=== PATIENT | male | born 1985 | race African-American/Black ===

== ENCOUNTER 2017-04-29 16:40 | Emergency (ER) | payer MEDICAID ==
[~2017-04-29] VITALS: Ht 172.7 cm; Wt 73.5 kg
[~2017-04-29 16:40] MED LIST: AMOXICILLI200 MG/5 M PO; AMOXICILLIN500 MG PO; ANUSOL HC1 SUPP RECTAL; AZITHROMYCIN250 MG ORAL; CIPRO250 MG ORAL; HYDROCORTISO1 APPLIC TOPIC; IBUPROFEN800 M1 PO; NKM; NORCO 5-325 TA1 EACH ORAL; PENICILLIN V P500 MG ORAL; PRILOSEC20 MG ORAL; PROTONIX40 MG ORAL; RANITIDINE HCL150 MG ORAL; ZOFRAN ODT4 MG ORAL
[2017-04-29 17:03] VITALS: BP 126/71
[2017-04-29] MEDS ORDERED: AMOXICILLIN500 MG ORAL (17:13)
[2017-04-29 17:26] VITALS: BP 126/71
--- NOTE | 2017-04-29 18:55 | Emergency Room Report ---
History of Present Illness General Chief Complaint: Earache Source: Patient Present Illness HPI The patient is a 31-year-old presenting for bilateral ear pain. The patient states the pain began one week prior to both ears and is now described as a 6/ 10 dull ache. Pain does not radiate. No known provoking or relieving factors. He states that he placed garlic inside of the ears and is unsure if he removed all of it. He denies any injury to the area. He denies any changes in hearing or dizziness Allergies: Coded Allergies: No Known Allergies (Unverified , 09/11/16) Patient History Past Medical History: see triage record Pertinent Family History: none Reviewed Nursing Documentation: PMH: Agreed, PSxH: Agreed Nursing Documentation-PMH Hx Cardiac Problems: No Hx Cancer: No Hx Gastrointestinal Problems: Yes - GERD, Pancreatitis Hx Neurological Problems: No Review of Systems All Other Systems: negative except mentioned in HPI Physical Exam Vital Signs Date Time Temp Pulse Resp B/P Pulse Ox O2 Delivery O2 Flow Rate FiO2 04/29/17 16:53 98.1 84 15 126/71 100 Room Air Sp02 EP Interpretation: reviewed, normal General Appearance: no apparent distress, alert, GCS 15, non-toxic Head: normocephalic, atraumatic Eyes: bilateral eye PERRL, bilateral eye normal inspection ENT: hearing grossly normal, normal pharynx, no angioedema, normal voice, uvula midline, other - bilat TM erythema and bulging. No FB Neck: full range of motion, supple/symm/no masses Respiratory: chest non-tender, lungs clear, normal breath sounds, speaking full sentences Musculoskeletal: back normal, gait/station normal, normal range of motion, non- tender Neurologic: alert, oriented x3, responsive, motor strength/tone normal, sensory intact, speech normal Psychiatric: judgement/insight normal, memory normal, mood/affect normal, no suicidal/homicidal ideation Skin: normal color, no rash, warm/dry, well hydrated Lymphatic: no adenopathy Medical Decision Making PA Attestation Dr. Breen is my supervising physician. Patient management was discussed with my supervising physician Diagnostic Impression: Primary Impression: Otitis media Qualified Codes: H66.93 - Otitis media, unspecified, bilateral ER Course The patient is a 31-year-old presenting for bilateral ear pain Differential diagnosis include but not limited to otitis externa, otitis media, mastoiditis, sinusitis, pharyngitis, FB Physical exam:No apparent distress HEENT exam: There is bilateral tympanic membrane erythema and bulging. External auditory canal unremarkable. No tenderness to palpation over tragus. No nasal discharge. No foreign body. No tonsillar edema or erythema. No exudate Lungs are clear to auscultation bilaterally The patient will be discharged home with a prescription for amoxicillin and will followup with [employer]. ER precautions are given Last Vital Signs Date Time Temp Pulse Resp B/P Pulse Ox O2 Delivery O2 Flow Rate FiO2 04/29/17 17:26 84 15 126/71 100 Room Air 04/29/17 17:03 98.1 Status: improved Disposition: HOME, SELF-CARE Condition: Improved Scripts Amoxicillin* (AMOXIL*) 500 Mg Capsule 500 MG ORAL Q12HR, #14 CAP Prov: LULU DOWNS 04/29/17 Referrals: [facility],REFERRING (PCP) Patient Instructions: Otitis Media, Adult Additional Instructions: I discussed my findings with the patient. All questions and concerns have been answered. Treatment and medication compliance have been addressed. I advised the patient that they need to follow up with PMD in 3-5 days. Return to ED if symptoms worsen, new symptoms arise, or if needed for any reason. Patient verbalized understanding of discharge instructions. LULU DOWNS Apr 29, 2017 18:55
== END 2017-04-29 17:26 | disposition home or self-care (01) ==
LOC: EMR 17:10
DX: H66.93 Otitis media, unspecified, bilateral (principal); K21.9 Gastro-esophageal reflux disease without esophagitis
CPT/HCPCS: 99283

== ENCOUNTER 2018-09-07 22:19 | Emergency (ER) | payer MEDICAID ==
[~2018-09-07] VITALS: Ht 175.3 cm; Wt 77.1 kg
[~2018-09-07 22:19] MED LIST changes: +AMOXICILLIN500 MG ORAL
[2018-09-07 22:35] VITALS: BP 134/81
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
[2018-09-07 22:56] LABS: APPEARANCE,URINE CLEAR; BILIRUBIN, URINE NEGATIVE (NEGATIVE); GLUCOSE, URINE (UA) NEGATIVE (NEGATIVE); KETONES,URINE NEGATIVE (NEGATIVE); LEUKOCYTE ESTERASE ,URINE NEGATIVE (NEGATIVE); NITRITE,URINE NEGATIVE (NEGATIVE); PH,URINE 5 (4.5-8.0); PROTEIN,URINE NEGATIVE (NEGATIVE); UROBILINOGEN,URINE NORMAL MG/DL (0.0-1.0)
[2018-09-07 22:57] LABS: COLOR,URINE YELLOW
[2018-09-07] MEDS ORDERED: IBUPROFEN600 MG ORAL (23:45)
[2018-09-07 23:51] VITALS: BP 134/81
--- NOTE | 2018-09-08 10:12 | Diagnostic Imaging Report ---
Indication: Abdominal pain Technique: Continuous helical transaxial imaging of the abdomen and pelvis was obtained from the lung bases to the pubic symphysis. No intravenous contrast was administered. Coronal 2-D reformats were also obtained. Automatic Exposure Control was utilized. Total Dose length Product (DLP): 690.[address] Dose Index Volume (CTDIvol): 13.21 mGy Comparison: none Findings: The lung bases are clear. No nephrolithiasis or hydronephrosis demonstrated. Appendix is essentially normal. No free fluid or free air identified. Small left inguinal hernia containing fat demonstrated. Gallbladder is contracted. Evaluation limited by the nonadministration of intravenous and oral contrast. IMPRESSION: Small left inguinal hernia containing fat. No acute findings. Normal appendix. [facility] has communicated the preliminary results to the Emergency Department. Their findings are largely concordant with this report. The CT scanner at [facility] is accredited by the [employer] and the scans are performed using dose optimization techniques as appropriate to a performed exam including Automatic Exposure control.
== END 2018-09-07 23:51 | disposition home or self-care (01) ==
LOC: EMR 22:38
DX: R10.31 Right lower quadrant pain (principal); K40.90 Unilateral inguinal hernia, without obstruction or gangrene, not specified as recurrent
CPT/HCPCS: 74176; 81003; 99284

== ENCOUNTER 2019-05-30 02:58 | Emergency (ER) | payer MEDICAID ==
[~2019-05-30] VITALS: Ht 172.7 cm; Wt 63.5 kg
[~2019-05-30 02:58] MED LIST changes: +IBUPROFEN600 MG ORAL
[2019-05-30 03:15] VITALS: BP 124/78
--- NOTE | 2019-05-30 03:15 | NUR ---
ED Nurse Note: Pt ambulated to ED from home c/o itching and redness on upper inner left arm. Pt suspects it is a bug bite. Pt denies trauma or pain. Raised redness outlined in skin ink pen.
[2019-05-30] MEDS ORDERED: CEPHALEXIN500 MG ORAL (03:29)
[2019-05-30] MEDS ORDERED: ANTI-ITCH28 G1 TP (03:29)
--- NOTE | 2019-05-30 03:30 | NUR ---
ER DISCHARGE NOTE: Patient is cleared to be discharged per ERMD, pt is aox4, on room air, with stable vital signs. pt was given dc and prescription instructions, pt was able to verbalize understanding, pt id band removed. pt is able to ambulate with steady gait. pt took all belongings.
--- NOTE | 2019-05-30 06:38 | Emergency Room Report ---
History of Present Illness General Chief Complaint: Skin Rash/Abscess Source: Patient Present Illness Allergies: Coded Allergies: No Known Allergies (Unverified , 09/11/16) Patient History Reviewed Nursing Documentation: PMH: Agreed; PSxH: Agreed Nursing Documentation-PMH Past Medical History: No Stated History Hx Cardiac Problems: No Hx Cancer: No Hx Gastrointestinal Problems: Yes Hx Neurological Problems: No Review of Systems All Other Systems: limited Physical Exam Vital Signs Date Time Temp Pulse Resp B/P (MAP) Pulse Ox O2 Delivery O2 Flow Rate FiO2 05/30/19 03:12 98.1 82 16 120/80 (93) 98 Room Air General Appearance: normal inspection, well appearing, no apparent distress, alert, GCS 15 Head: normocephalic, atraumatic ENT: hearing grossly normal, normal voice Neck: full range of motion, supple Respiratory: no respiratory distress, speaking full sentences Cardiovascular #1: normal inspection Neurologic: normal gait Psychiatric: mood/affect normal Skin: no rash Medical Decision Making Diagnostic Impression: Primary Impression: Insect bite Last Vital Signs Date Time Temp Pulse Resp B/P (MAP) Pulse Ox O2 Delivery O2 Flow Rate FiO2 05/30/19 03:15 98.1 80 16 124/78 98 Room Air Status: improved Disposition: HOME, SELF-CARE Condition: Stable Scripts Hydrocortisone 2% Cream (ANTI-ITCH 2% CREAM) Y Cr 28 GM TP DAILY, #28 GM Prov: Deepak Corral MD 05/30/19 Cephalexin* (KEFLEX*) 500 Mg Capsule 500 MG ORAL EVERY 6 HOURS, #28 CAP Prov: Deepak Corral MD 05/30/19 Referrals: [facility],REFERRING (PCP) Patient Instructions: Insect Bite, [id number] Deepak Corral MD May 30, 2019 06:38
== END 2019-05-30 03:30 | disposition home or self-care (01) ==
LOC: EMR 03:25
DX: R21 Rash and other nonspecific skin eruption (principal); T14.8XXA Other injury of unspecified body region, initial encounter; W57.XXXA Bitten or stung by nonvenomous insect and other nonvenomous arthropods, initial encounter; Y92.9 Unspecified place or not applicable
CPT/HCPCS: 99282

== ENCOUNTER 2019-07-19 09:46 | Emergency (ER) | payer MEDICAID ==
[~2019-07-19] VITALS: Ht 175.3 cm; Wt 81.6 kg
[~2019-07-19 09:46] MED LIST changes: +ANTI-ITCH28 G1 TP; +CEPHALEXIN500 MG ORAL
--- NOTE | 2019-07-19 10:02 | NUR ---
ED Nurse Note: PT WALKED IN TO ER TODAY FROM HOME. AOX4. PT C/O BILATERAL EARACHE, RIGHT > LEFT, PAIN 7/10 X ABOUT A WEEK AGO. PT DENIES ANY DISCHARGE OR BLEEDING OR ANY CHANGES IN HEARING. PT STATES HE TRIED CLEANING WITH BLACK SEED OIL YESTERDAY BUT WITHOUT RELIEF.
[2019-07-19 10:03] VITALS: BP 136/84
--- NOTE | 2019-07-19 10:25 | Emergency Room Report ---
History of Present Illness General Chief Complaint: Earache Source: Patient Present Illness HPI Disclaimer: Please note that this report is being documented using [employer] technology. This can lead to erroneous entry secondary to incorrect interpretation by the dictating instrument. HPI: 33-year-old otherwise healthy male presents for evaluation of pressure in the right ear. Symptoms have been present for approximately 1 week. He has been using [id number] black seed oil and shoving cotton balls in the external canal to fight "inflammation." Notes worsening pressure but denies any changes in his hearing acuity. He had some tenderness in the left ear earlier in the week however this is now resolved. Otherwise denies any URI symptoms such as headache, nasal congestion, postnasal drip, sore throat and denies any chest pain, shortness of breath, cough, vomiting, diarrhea or other change in his health. He has had otitis media in the past. Denies recent antibiotic use PMH: Denies PSH: Denies Allergies: Denies Social Hx: Denies excessive alcohol or drug use Allergies: Coded Allergies: No Known Allergies (Unverified , 09/11/16) Nursing Documentation-PMH Past Medical History: No History, Except For Hx Cardiac Problems: No Hx Cancer: No Hx Gastrointestinal Problems: Yes - GERD Hx Neurological Problems: No Review of Systems All Other Systems: negative except mentioned in HPI Physical Exam Vital Signs Date Time Temp Pulse Resp B/P (MAP) Pulse Ox O2 Delivery O2 Flow Rate FiO2 07/19/19 09:57 98.6 82 20 149/90 (109) 98 Room Air General: Awake and alert, no acute distress HEENT: NC/AT. EOMI. there is cerumen partially occluding the external canal in the left side. Cannot fully visualize the tympanic membrane though it appears nonbulging and pearly hardin on the parts that are visible. There is no effusion in the external canal. The right tympanic membrane is obscured by a cottonball that is sitting just over the tympanic membrane. No edema or discharge in the external canal. After irrigation the right tympanic membrane is edematous, bulging, loss of landmarks and opaque. Neck: Supple, trachea midline Resp: Normal work of breathing. Skin: Intact. No abrasions, laceration or rash over the exposed skin MSK: Normal tone and bulk. Moving all extremities. No obvious deformity. Neuro: Awake and alert. Mentating appropriately. Medical Decision Making Diagnostic Impression: Primary Impression: Otitis media ER Course This a 33-year-old male presenting for evaluation of right-sided ear pain of 1 week duration. The patient has a cotton ball wedged in his external canal against the tympanic membrane. I attempted to remove it with alligator clamps however was unsuccessful. Ear was irrigated showing a bulging right tympanic membrane concerning for otitis media. He will be started on Augmentin and discharged home. We spoke about not infusing anymore oils into his ear and refraining from inserting cotton balls in his external auditory canal. We discussed reasons to return to the emergency department as well as need for proper follow-up with his PMD. He understands and agrees with treatment plan will be discharged home. Last Vital Signs Date Time Temp Pulse Resp B/P (MAP) Pulse Ox O2 Delivery O2 Flow Rate FiO2 07/19/19 10:03 98.4 78 18 136/84 100 Room Air Disposition: HOME, SELF-CARE Condition: Stable Scripts Amoxicillin/Clavulanate K (Amox-Clav 875-125 mg Tablet) 1 Each Tablet 875 MG ORAL EVERY 12 HOURS for 7 Days, #14 TAB Prov: Dennys Gutierrez MD 07/19/19 Dennys Gutierrez MD Jul 19, 2019 10:25
[2019-07-19] MEDS ORDERED: AUGMENTIN TAB875 MG ORAL (10:42)
--- NOTE | 2019-07-19 10:56 | NUR ---
ED Nurse Note: PT SITTING PEACEFULLY IN BED IN NAD. AOX4. PRESCRIPTION AND DISCHARGE PAPERWORK EXPLAINED TO PT. PT VERBALIZES UNDERSTANDING AND ALL QUESTIONS ANSWERED. PRESCRIPTION AND DISCHARGE PAPERWORK GIVEN TO PT AND ID WRISTBAND REMOVED. PT WALKED OUT OF ER WITH STEADY GAIT AND ALL BELONGINGS.
[2019-07-19 10:58] VITALS: BP 138/82
== END 2019-07-19 10:59 | disposition home or self-care (01) ==
LOC: EMR 10:26
DX: H66.91 Otitis media, unspecified, right ear (principal); K21.9 Gastro-esophageal reflux disease without esophagitis; T16.1XXA Foreign body in right ear, initial encounter; X58.XXXA Exposure to other specified factors, initial encounter; Y92.9 Unspecified place or not applicable
CPT/HCPCS: 99282